=== PATIENT | male | born 1985 | race Caucasian/White ===

== ENCOUNTER 2019-03-30 10:24 | Emergency (ER) | payer SELFPAY ==
--- NOTE | 2019-03-30 11:12 | EDM.PDOC ---
ED HPI GENERAL MEDICAL PROBLEM - General Source of Information: Reports: Patient History Limitations: Reports: No Limitations - History of Present Illness Onset: Sudden Duration: Hour(s): Location: Reports: Head, Neck Quality: Reports: Sharp Severity: Moderate Improves with: Reports: Immobilization, Rest Worsens with: Reports: Movement Associated Symptoms: Reports: No Other Symptoms Neck Pain Score (Numeric/FACES): 7 <Mary Anne iWlson - Last Filed: 03/30/19 11:05> <Renny Snell - Last Filed: 04/01/19 07:43> - General Chief Complaint: Head Injury Stated Complaint: HEAD INJURY Time Seen by Provider: 03/30/19 10:45 - History of Present Illness INITIAL COMMENTS - FREE TEXT/NARRATIVE: Patient is a pleasant 33-year-old male who presents to the ED for neck pain that started last evening after he slipped on ice, landed flat on his back, and hit the back of his head on the ground. He reports that he thinks he lost consciousness for at least a minute. When he got up he denies that he felt dizzy, lightheaded, or nauseous. Patient reports that his brother told him that when he came into the house he told his brother that he hit his head then stood there for a few minutes and then repeated that he hit his head. He denies having anymore episodes of memory lapse. He has been experiencing constant neck pain for the past 12 hours now that is sharp in nature and he rates it as an 8/10. He states the pain increases when he turns his head and bends forward. He denies chest pain, shortness of breath, numbness and tingling. (Mary Anne Wilson) - Related Data Allergies Allergy/AdvReac Type Severity Reaction Status Date / Time cat dander Allergy Shortness Verified 03/30/19 10:42 of Breath weed pollen Allergy Shortness Verified 03/30/19 10:42 of Breath Home Meds: Home Meds . [No Known Home Meds] 03/30/19 [History] Past Medical History HEENT History: Reports: None Cardiovascular History: Reports: None Respiratory History: Reports: None Gastrointestinal History: Reports: None Genitourinary History: Reports: None Musculoskeletal History: Reports: None Neurological History: Reports: None Psychiatric History: Reports: None Endocrine/Metabolic History: Reports: None Hematologic History: Reports: None Immunologic History: Reports: None Oncologic (Cancer) History: Reports: None - Infectious Disease History Infectious Disease History: Reports: None - Past Surgical History Dermatological Surgical History: Reports: Plastic Surgical Reconstruction/Repair , Skin Graft <Mary Anne Wilson - Last Filed: 03/30/19 11:05> Social & Family History - Tobacco Use Smoking Status *Q: Never Smoker - Caffeine Use Caffeine Use: Reports: Coffee - Recreational Drug Use Recreational Drug Use: Yes Recreational Drug Type: Reports: Marijuana/Hashish <Mary Anne Wilson - Last Filed: 03/30/19 11:05> ED ROS GENERAL - Review of Systems Review Of Systems: See Below Constitutional: Reports: No Symptoms. Denies: Fever, Chills, Weakness HEENT: Reports: No Symptoms. Denies: Ear Pain, Eye Pain, Vision Change Respiratory: Reports: No Symptoms. Denies: Shortness of Breath, Wheezing, Cough Cardiovascular: Reports: No Symptoms. Denies: Chest Pain, Lightheadedness, Syncope Musculoskeletal: Reports: Neck Pain, Muscle Stiffness (in neck) Skin: Reports: No Symptoms. Denies: Bruising, Rash, Erythema, Wound Neurological: Reports: No Symptoms. Denies: Dizziness, Headache, Numbness, Syncope, Tingling, Weakness Psychiatric: Reports: No Symptoms <Mary Anne Wilson - Last Filed: 03/30/19 11:05> ED EXAM, HEAD INJURY - Physical Exam Exam: See Below Exam Limited By: No Limitations General Appearance: Alert, WD/WN, No Apparent Distress Head: Atraumatic, Normocephalic. No: Scalp Lacerations, Scalp Swelling Eyes: Bilateral Eye: Normal Inspection, PERRL Ears: Normal External Exam, Normal Canal, Hearing Grossly Normal, Normal TMs Neck: Painful Range of Motion (with flexion, extension, and tilting head side-to -side), Stiff Neck, Tenderness (with palpation at base of neck) Respiratory: No Respiratory Distress, Lungs Clear, Normal Breath Sounds, Chest Non-Tender Cardiovascular: Normal Peripheral Pulses, Regular Rate, Rhythm, No Edema, No Murmur GI/Abdominal Exam: Normal Bowel Sounds, Soft, Non-Tender, No Organomegaly Back Exam: Normal Inspection, Full Range of Motion. No: Vertebral Tenderness Extremities: Normal Inspection, Normal Range of Motion, Non-Tender, No Pedal Edema, Normal Capillary Refill Neurologic: solid waste manager II-XII nml As Tested, No Motor/Sensory Deficits, Alert, Normal Mood/Affect, Oriented x 3 Skin: Normal Color, Warm/Dry <SteveMary Anne - Last Filed: 03/30/19 11:05> Course <SteveMary Anne - Last Filed: 03/30/19 11:05> <Renny Snell - Last Filed: 04/01/19 07:43> - Vital Signs Last Recorded V/S: Last Vital Signs Temp 99.2 F 03/30/19 10:38 Pulse 76 03/30/19 10:38 Resp 14 03/30/19 10:38 BP 166/98 H 03/30/19 10:38 Pulse Ox 96 03/30/19 10:38 - Re-Assessments/Exams Free Text/Narrative Re-Assessment/Exam: 04/01/19 07:41 Initial history and exam was done by RICK Padgett student. I agree with her history and exam as documented. I have also interviewed and examined patient. I did spend considerable time discussing with patient the option of getting a CT of his neck but when I see him moving his head voluntarily on his own side to side full range of motion with no visible evidence of discomfort although he does state it is sore his neck is not broken. I am comfortable with the diagnosis of cervical strain. Patient also is comfortable with that diagnosis. He will return to ED as needed if symptoms worsening in any way. He does have a mild head concussion but also does not warrant imaging on that basis due to symptoms of concussion rapidly improving. (Renny Snell) Departure <SteveMary Anne - Last Filed: 03/30/19 11:05> - Departure Time of Disposition: 11:19 Condition: Fair <Renny Snell - Last Filed: 04/01/19 07:43> - Departure Disposition: Home, Self-Care 01 Clinical Impression: Fall, Head concussion, Acute neck sprain - Discharge Information Instructions: Head Injury, Adult, Concussion, Adult Referrals: PCP,None [Primary Care Provider] - Forms: ED Department Discharge, ED Return to Work/School Form Additional Instructions: No work today, resume normal activity tomorrow slowly and carefully as tolerated. The treatment for concussion is rest and time. If you do start getting severe headache working then you need more time off. You can safely take Advil or ibuprofen 600 mg 3 times daily for pain and stiffness. You can take Tylenol in between doses for extra pain relief as needed. Follow-up clinic if not much better within 3-4 days as expected. Return to ED as needed if symptoms worsening in any way. Sepsis Event Note - Evaluation Sepsis Screening Result: No Definite Risk - Focused Exam Date Exam was Performed: 03/30/19 Time Exam was Performed: 11:05 <Mary Anne Wilson - Last Filed: 03/30/19 11:05> - Focused Exam Date Exam was Performed: 04/01/19 Time Exam was Performed: 07:40 <Renny Snell - Last Filed: 04/01/19 07:43>
== END 2019-03-30 11:27 | disposition home or self-care (01) ==
LOC: JD.ED 10:24
CPT/HCPCS: 99282; 99283